=== PATIENT | male | born 1965 | race Caucasian/White ===

== ENCOUNTER 2020-12-23 12:56 | Outpatient (CLI) | payer OTHER, SELFPAY ==
[2020-12-23 13:38] LABS: Basophils Absolute Auto 0.1 K/mm3 (0.0-0.1); Basophils Percent Auto 1.8 % (0.2-1.2); Eosinophils Absolute Auto 0.4 K/mm3 (0-0.3); Eosinophils Percent Auto 7.4 % (0-4.4); Hematocrit 44.9 % (42.0-52.0); Hemoglobin 13.6 g/dL (14.0-18.0); Immature Granulocyte Absolute 0.02 K/mm3 (0.00-0.031); Immature Granulocyte Percent A 0.4 % (0-0.5); Lymphocytes Absolute Auto 1.91 K/mm3 (0.9-3.2); Lymphocytes Percent Auto 39.1 % (18.3-44.2); Mean Corpuscular HGB Conc 30.3 g/dl (32-36); Mean Corpuscular Hemoglobin 23.6 pg (26-34); Mean Corpuscular Volume 77.8 fl (80-100); Mean Platelet Volume 9.2 fl (7.4-10.4); Monocytes Absolute Auto 0.5 K/mm3 (0.1-0.6); Monocytes Percent Auto 10.8 % (2.6-8.5); Neutrophils Percent Auto 40.5 % (45.5-73.1); Platelet Count Result 268 k/mm3 (150-375); Red Blood Count 5.77 M/mm3 (4.6-6.20); Red Cell Distribution Width 15.9 % (11.5-14.5); White Blood Count 4.9 K/mm3 (4.5-10.0)
[2020-12-23 14:03] LABS: Alanine Aminotransferase 28 U/L (4-50); Albumin Level 4.8 g/dL (3.5-5.1); Alkaline Phosphatase 44 U/L (38-126); Anion Gap 12 mmol/L (8-16); Aspartate Amino Transferase 38 U/L (17-59); Bilirubin,Total 0.6 mg/dL (0.2-1.3); Blood Urea Nitrogen 16 mg/dL (9-20); Calcium 10.3 mg/dL (8.4-10.2); Carbon Dioxide 27 mmol/L (22-30); Chloride 101 mmol/L (98-107); Cholesterol 202 mg/dL (0-200); Estimated Glomerular Filt Rate > 60; Glucose 117 mg/dL (75-110); HDL Direct 40 mg/dL; Sodium 140 mmol/L (137-145); Triglycerides 161 mg/dL (<150)
[2020-12-23 14:07] LABS: LDL Cholesterol Direct 108 mg/dL
[2020-12-23 14:24] LABS: Prostate Specific Antigen 0.8 ng/mL (< OR = 4.0)
[2020-12-23 14:59] LABS: Vitamin D 25 Hydroxy 53.1 ng/mL
[2020-12-26 17:52] LABS: Testosterone Free 76.3 pg/mL (35.0-155.0); Testosterone Total 360 ng/dL (250-1100)
== END 2020-12-23 12:57 | disposition home or self-care (01) ==
LOC: ANHLAB 12:59
PROVIDERS: PCP Internal Medicine; Visit Provider Family Medicine
DX: Z00.00 Encounter for general adult medical examination without abnormal findings (principal); I10 Essential (primary) hypertension; E29.1 Testicular hypofunction; E78.5 Hyperlipidemia, unspecified; F51.01 Primary insomnia; E55.9 Vitamin D deficiency, unspecified; Z12.5 Encounter for screening for malignant neoplasm of prostate
CPT/HCPCS: 36415; 80053; 80061; 82306; 83036; 84153; 84402; 84403; 84443; 85025; G0103

== ENCOUNTER 2021-10-27 02:06 | Day surgery (SDC) | payer OTHER, SELFPAY ==
[2021-10-16 15:37] VITALS: BMI 40.8
[2021-10-27 11:52] VITALS: BP 139/99; PULSE 85; RESP 20; TEMP 35.9; O2SAT 98
[2021-10-27] MEDS: LACTATED RINGERS 1,000 ML 150 ML IV CONT (12:02)
--- NOTE | 2021-10-27 12:26 | WPDHPUPDATE1 ---
History and Physical Update Update Date/Time: 10/27/21 12:26 History and Physical has been reviewed, including an updated exam of the patient. There are NO changes in the patient's condition. Risks, benefits, and alternatives have been discussed and questions answered. Patient agrees to proceed with procedure.
--- NOTE | 2021-10-27 12:33 | WPDANESEPPF ---
Anes - Initial Pre Proc Eval Procedure: Operation Date: 10/27/21 13:00 Proposed Procedures p Esophagogastroduodenoscopy - Thai Mueller MD Date/Time: 10/27/21 12:33 Surgeon: Thai Mueller MD Pre Op Diagnosis: GERD, Vidales's Esophagus Patient Data Age: 56 Gender: M Height: 1.96 m Weight: 159.1 kg Last Vital Signs Temp 96.7 F L 10/27/21 11:52 Pulse 85 10/27/21 11:52 Resp 20 10/27/21 11:52 BP 139/99 H 10/27/21 11:52 Pulse Ox 98 10/27/21 11:52 Allergies Allergy/AdvReac Type Severity Reaction Status Date / Time corn AdvReac Mild Other Verified 10/27/21 11:51 Home Medications Medication Instructions Recorded Confirmed Type escitalopram oxalate 20 mg tablet 20 mg PO DAILY #90 tablet 03/31/21 10/16/21 Rx lisinopril 20 1 tablet PO DAILY #90 tablet 04/21/21 10/16/21 Rx mg-hydrochlorothiazide 25 mg tablet atorvastatin 20 mg tablet 20 mg PO QHS #90 tablet 05/13/21 10/16/21 Rx esomeprazole magnesium 20 mg 20 mg PO BID cap 07/09/21 10/16/21 History capsule,delayed release Patient hx anesthesia problems: none Family hx anesthesia problems: none Results Review: All pre-operative results and documents have been reviewed as part of the pre-operative evaluation. [facility] Past Medical History Medical History COVID 06/2021 Generalized anxiety disorder GERD without esophagitis Irritable bowel syndrome with diarrhea Low iron Mixed hyperlipidemia Prediabetes Primary insomnia Testicular hypofunction Umbilical hernia without mention of obstruction or gangrene Surgical History Surgical History H/O hemorrhoidectomy (~2000) Family History Family History Mother Family history of malignant neoplasm Father Family history of coronary artery disease Social History Social History Tobacco type: cigars Second hand tobacco smoke exposure: No Alcohol intake: current Drinks per week: 21 Alcohol use details: 3 beers nightly Substance use: never Substance use type: does not use Living arrangements: with family Additional living arrangements comments: Gender identity (if verbalized by the patient): Male Spiritual care concerns: No Anes - Eval Final PreProcedure Day of Procedure 10/27/21 12:33 Patient weight: morbidly obese Heart: regular rate and rhythm Lungs: clear to auscultation Airway: Mallampati scale class III Neurological: alert and oriented Last oral intake: >/= 8 hours ASA classification: III Emergent: no Anesthetic plan: proceed Anesthesia type and monitoring: general GIVS and standard monitoring Results Review: All pre-operative results and documents have been reviewed as part of the pre-operative evaluation. Informed Consent: The patient's anesthetic plan and its attendant risks and benefits were discussed with the patient/family/POA. Questions were solicited and answers provided to the satisfaction of the patient/family/POA.
[2021-10-27] MEDS: BENZOCAINE (*SP) 60 ML SPRAY CAN (HURRICAINE) 1 SPRAY MUCOUS MEM (13:04)
[2021-10-27 13:24] VITALS: BP 125/96; PULSE 79; RESP 18; O2SAT 96
[2021-10-27 13:34] VITALS: BP 148/88; PULSE 80; RESP 14; O2SAT 98
== END 2021-10-27 13:56 | disposition home or self-care (01) ==
PROVIDERS: PCP Family Medicine; Visit Provider Internal Medicine Gastroenterology
PROC: 0DJ08ZZ Inspection of Upper Intestinal Tract, Via Natural or Artificial Opening Endoscopic (ICD-10-PCS; CPT 43235; principal; 2021-10-27 13:00)
DX: K21.00 Gastro-esophageal reflux disease with esophagitis, without bleeding (principal); K22.9 Disease of esophagus, unspecified; K58.0 Irritable bowel syndrome with diarrhea; E78.2 Mixed hyperlipidemia; F41.1 Generalized anxiety disorder; R73.03 Prediabetes; E66.01 Morbid (severe) obesity due to excess calories; Z68.41 Body mass index [BMI] 40.0-44.9, adult
CPT/HCPCS: 43239; 88305; 88313; J2704; J7120

== ENCOUNTER 2021-12-31 11:13 | Outpatient (CLI) | payer OTHER, SELFPAY ==
[2021-12-31 11:57] LABS: Basophils Absolute Auto 0.1 K/mm3 (0.0-0.1); Basophils Percent Auto 1.3 % (0.2-1.2); Eosinophils Absolute Auto 0.3 K/mm3 (0-0.3); Eosinophils Percent Auto 4.6 % (0-4.4); Hematocrit 41.3 % (42.0-52.0); Hemoglobin 12.6 g/dL (14.0-18.0); Immature Granulocyte Absolute 0.03 K/mm3 (0.00-0.031); Immature Granulocyte Percent A 0.6 % (0-0.5); Lymphocytes Absolute Auto 1.66 K/mm3 (0.9-3.2); Lymphocytes Percent Auto 30.7 % (18.3-44.2); Mean Corpuscular HGB Conc 30.5 g/dl (32-36); Mean Corpuscular Hemoglobin 22.8 pg (26-34); Mean Corpuscular Volume 74.8 fl (80-100); Mean Platelet Volume 9.1 fl (7.4-10.4); Monocytes Absolute Auto 0.6 K/mm3 (0.1-0.6); Monocytes Percent Auto 10.7 % (2.6-8.5); Neutrophils Absolute Auto 2.8 K/mm3 (1.3-6.7); Neutrophils Percent Auto 52.1 % (45.5-73.1); Platelet Count Result 321 k/mm3 (150-375); Red Blood Count 5.52 M/mm3 (4.6-6.20); Red Cell Distribution Width 16.2 % (11.5-14.5); White Blood Count 5.4 K/mm3 (4.5-10.0)
[2021-12-31 12:37] LABS: Microcytosis 1+ (NORMAL); Platelet Estimate Adequate (Adequate)
[2021-12-31 12:38] LABS: Hypochromasia 1+ (NORMAL)
[2021-12-31 19:11] LABS: Alanine Aminotransferase 27 U/L (6-50); Albumin Level 4.7 g/dL (3.5-5.1); Alkaline Phosphatase 57 U/L (38-126); Amylase 83 U/L (30-110); Anion Gap 8 mmol/L (8-16); Aspartate Amino Transferase 41 U/L (17-59); Bilirubin,Total 0.6 mg/dL (0.2-1.3); Blood Urea Nitrogen 19 mg/dL (9-20); Calcium 9.7 mg/dL (8.4-10.2); Carbon Dioxide 29 mmol/L (22-30); Chloride 99 mmol/L (98-107); Estimated Glomerular Filt Rate > 60; Glucose 108 mg/dL (65-110); Lipase 74 U/L (23-300); Potassium 4.2 mmol/L (3.4-5.0); Sodium 136 mmol/L (137-145)
== END 2021-12-31 11:14 | disposition home or self-care (01) ==
LOC: ANHGOSHLAB 11:14
PROVIDERS: PCP Family Medicine; Visit Provider Nurse Practitioner Family
DX: R10.12 Left upper quadrant pain (principal)
CPT/HCPCS: 36415; 80053; 82150; 83690; 85025

== ENCOUNTER 2022-01-02 10:21 | Outpatient (CLI) | payer OTHER, SELFPAY ==
[2022-01-02 11:26] LABS: Iron 41 ug/dL (49-181)
[2022-01-02 11:36] LABS: Percent Iron Saturation 8 % (20-50)
[2022-01-02 12:03] LABS: Ferritin 7.18 ng/mL (11.1-264)
[2022-01-02 12:29] LABS: Folic Acid 8.7 ng/mL (2.76->20)
[2022-01-08 19:30] LABS: Gliadin AB, IgG <1.0 U/mL (<15.0); TTG IGA AB <1.0 U/mL (<15.0)
== END 2022-01-02 10:22 | disposition home or self-care (01) ==
PROVIDERS: PCP Family Medicine; Visit Provider Nurse Practitioner
DX: R19.7 Diarrhea, unspecified (principal); R19.4 Change in bowel habit; R14.3 Flatulence; D50.9 Iron deficiency anemia, unspecified
CPT/HCPCS: 36415; 82607; 82728; 82746; 83516; 83540; 83550; 84443; 86255

== ENCOUNTER 2022-01-07 10:08 | Outpatient (CLI) | payer OTHER, SELFPAY ==
[2022-01-07 14:03] LABS: Toxigenic C. Diff NEGATIVE (NEGATIVE)
== END 2022-01-07 10:09 | disposition home or self-care (01) ==
LOC: ANHLAB 10:09
PROVIDERS: PCP Family Medicine; Visit Provider Nurse Practitioner
DX: D50.9 Iron deficiency anemia, unspecified (principal); R14.3 Flatulence; R19.4 Change in bowel habit; R19.7 Diarrhea, unspecified
CPT/HCPCS: 87045; 87427; 87493

== ENCOUNTER 2022-01-12 00:31 | Day surgery (SDC) | payer OTHER, SELFPAY ==
[2022-01-07 13:51] VITALS: BMI 40.5
[2022-01-12 11:57] VITALS: BP 149/97; PULSE 91; RESP 20; TEMP 36.4; O2SAT 97
[2022-01-12] MEDS: LACTATED RINGERS 1,000 ML 150 ML IV CONT (12:00)
--- NOTE | 2022-01-12 12:02 | WPDANESEPPF ---
Anes - Initial Pre Proc Eval Procedure: Operation Date: 01/12/22 13:30 Proposed Procedures p Colonoscopy - Thai Mueller MD Date/Time: 01/12/22 12:02 Surgeon: Thai Mueller MD Pre Op Diagnosis: anemia, abdominal pain, change in bowel habits Patient Data Age: 56 Gender: M Height: 1.96 m Weight: 157.2 kg Last Vital Signs Temp 97.6 F 01/12/22 11:57 Pulse 91 01/12/22 11:57 Resp 20 01/12/22 11:57 BP 149/97 H 01/12/22 11:57 Pulse Ox 97 01/12/22 11:57 O2 Del Method Room Air 01/12/22 11:57 Allergies Allergy/AdvReac Type Severity Reaction Status Date / Time No Known Allergies Allergy Verified 01/12/22 11:56 Home Medications Medication Instructions Recorded Confirmed Type lisinopril 20 1 tablet PO DAILY #90 tabs 11/12/21 01/12/22 Rx mg-hydrochlorothiazide 25 mg tablet doxazosin 4 mg tablet 4 mg PO DAILY #90 tabs 12/01/21 01/12/22 Rx atorvastatin 20 mg tablet 20 mg PO QHS #90 tabs 12/03/21 01/12/22 Rx escitalopram oxalate 20 mg tablet 20 mg PO DAILY #90 tabs 12/03/21 01/12/22 Rx dexlansoprazole 60 mg 60 mg PO DAILY #30 caps 01/02/22 01/12/22 Rx capsule,biphase delayed release (Dexilant) ferrous sulfate 325 mg (65 mg 325 mg PO DAILY #30 tabs 01/02/22 01/12/22 Rx iron) tablet esomeprazole magnesium 20 mg 20 mg PO DAILY 01/12/22 01/12/22 History capsule,delayed release (Nexium) Patient hx anesthesia problems: none Family hx anesthesia problems: none Results Review: All pre-operative results and documents have been reviewed as part of the pre-operative evaluation. [facility] Past Medical History Medical History (Updated 01/02/22 @ 10:19 by Radha Redman APRN) Change in bowel habits COVID 06/2021 Diarrhea Flatulence Generalized anxiety disorder GERD without esophagitis Irritable bowel syndrome with diarrhea Low iron Microcytic anemia Mixed hyperlipidemia Prediabetes Primary insomnia Testicular hypofunction Tobacco abuse Umbilical hernia without mention of obstruction or gangrene Surgical History Surgical History H/O hemorrhoidectomy (~2000) Family History Family History Mother Family history of malignant neoplasm Father Family history of coronary artery disease Social History Social History Smoking status: Light tobacco smoker Tobacco type: cigars Second hand tobacco smoke exposure: No Alcohol intake: current Drinks per week: 2 Alcohol use details: 3 beers nightly Substance use: never Substance use type: does not use Additional living arrangements comments: Gender identity (if verbalized by the patient): Male Sexual Orientation (if Verbalized by the Patient): Straight or Heterosexual Spiritual care concerns: No Anes - Eval Final PreProcedure Day of Procedure 01/12/22 12:02 Patient weight: morbidly obese Heart: regular rate and rhythm Lungs: clear to auscultation Airway: Mallampati scale class II Neurological: alert and oriented Last oral intake: >/= 8 hours ASA classification: III Emergent: no Anesthetic plan: proceed Anesthesia type and monitoring: general GIVS and standard monitoring Results Review: All pre-operative results and documents have been reviewed as part of the pre-operative evaluation. Informed Consent: The patient's anesthetic plan and its attendant risks and benefits were discussed with the patient/family/POA. Questions were solicited and answers provided to the satisfaction of the patient/family/POA.
--- NOTE | 2022-01-12 12:10 | WPDHPUPDATE1 ---
History and Physical Update Update Date/Time: 01/12/22 12:10 History and Physical has been reviewed, including an updated exam of the patient. There are NO changes in the patient's condition. Risks, benefits, and alternatives have been discussed and questions answered. Patient agrees to proceed with procedure.
[2022-01-12 12:58] VITALS: BP 134/97; PULSE 55; RESP 23; O2SAT 100
[2022-01-12 13:08] VITALS: BP 145/98; PULSE 67; RESP 20; O2SAT 100
[2022-01-12 13:18] VITALS: BP 151/108; PULSE 67; RESP 20; O2SAT 100
== END 2022-01-12 13:31 | disposition home or self-care (01) ==
PROVIDERS: PCP Family Medicine; Visit Provider Internal Medicine Gastroenterology
PROC: 0DJD8ZZ Inspection of Lower Intestinal Tract, Via Natural or Artificial Opening Endoscopic (ICD-10-PCS; CPT 45378; principal; 2022-01-12 13:30)
DX: R10.12 Left upper quadrant pain (principal); K64.8 Other hemorrhoids; D12.5 Benign neoplasm of sigmoid colon; Z86.16 Personal history of COVID-19; F41.1 Generalized anxiety disorder; E78.2 Mixed hyperlipidemia; R73.03 Prediabetes; K21.9 Gastro-esophageal reflux disease without esophagitis; F51.01 Primary insomnia; G47.9 Sleep disorder, unspecified; K58.0 Irritable bowel syndrome with diarrhea; K42.9 Umbilical hernia without obstruction or gangrene; D50.9 Iron deficiency anemia, unspecified; I10 Essential (primary) hypertension; R19.4 Change in bowel habit; R14.3 Flatulence; F17.210 Nicotine dependence, cigarettes, uncomplicated
CPT/HCPCS: 45385; 88305; J2704; J7120

== ENCOUNTER 2022-01-21 09:29 | Outpatient (CLI) | payer OTHER, SELFPAY ==
[2022-01-21 19:23] LABS: Basophils Absolute Auto 0.1 K/mm3 (0.0-0.1); Basophils Percent Auto 1.4 % (0.2-1.2); Eosinophils Absolute Auto 0.3 K/mm3 (0-0.3); Eosinophils Percent Auto 4.7 % (0-4.4); Hematocrit 43.2 % (42.0-52.0); Hemoglobin 12.8 g/dL (14.0-18.0); Immature Granulocyte Absolute 0.02 K/mm3 (0.00-0.031); Immature Granulocyte Percent A 0.4 % (0-0.5); Lymphocytes Absolute Auto 1.92 K/mm3 (0.9-3.2); Lymphocytes Percent Auto 34.7 % (18.3-44.2); Mean Corpuscular HGB Conc 29.6 g/dl (32-36); Mean Corpuscular Volume 77.7 fl (80-100); Mean Platelet Volume 9.8 fl (7.4-10.4); Monocytes Absolute Auto 0.6 K/mm3 (0.1-0.6); Monocytes Percent Auto 10.7 % (2.6-8.5); Neutrophils Absolute Auto 2.7 K/mm3 (1.3-6.7); Neutrophils Percent Auto 48.1 % (45.5-73.1); Platelet Count Result 284 k/mm3 (150-375); Red Blood Count 5.56 M/mm3 (4.6-6.20); Red Cell Distribution Width 18.2 % (11.5-14.5); White Blood Count 5.5 K/mm3 (4.5-10.0)
[2022-01-21 20:07] LABS: Cholesterol 154 mg/dL (0-200); HDL Direct 27 mg/dL; Triglycerides 139 mg/dL (<150)
[2022-01-21 20:15] LABS: Vitamin D 25 Hydroxy 55.1 ng/mL
[2022-01-21 20:27] LABS: LDL Cholesterol Direct 83 mg/dL
[2022-01-21 20:38] LABS: Anisocytosis 2+ (NORMAL); Hypochromasia 1+ (NORMAL); Platelet Estimate Adequate (Adequate)
[2022-01-21 20:44] LABS: Hemoglobin A1C 5.8 % (<5.7)
== END 2022-01-21 09:30 | disposition home or self-care (01) ==
LOC: ANHGOSHLAB 09:30
PROVIDERS: PCP Family Medicine; Visit Provider Family Medicine
DX: Z12.5 Encounter for screening for malignant neoplasm of prostate (principal); E78.5 Hyperlipidemia, unspecified; Z00.00 Encounter for general adult medical examination without abnormal findings; E55.9 Vitamin D deficiency, unspecified; R73.03 Prediabetes
CPT/HCPCS: 36415; 80061; 82306; 83036; 84153; 85025; G0103

== ENCOUNTER 2022-08-03 09:12 | Outpatient (CLI) | payer OTHER, SELFPAY ==
[2022-08-09 17:10] LABS: Testosterone Free 42.6 pg/mL (35.0-155.0); Testosterone Total 352 ng/dL (250-1100)
== END 2022-08-03 09:13 | disposition home or self-care (01) ==
PROVIDERS: PCP Family Medicine; Visit Provider Family Medicine
DX: E29.1 Testicular hypofunction (principal)
CPT/HCPCS: 36415; 84402; 84403

== ENCOUNTER 2022-11-02 10:40 | Outpatient (CLI) | payer OTHER, SELFPAY ==
[2022-11-02 11:07] LABS: Basophils Absolute Auto 0.1 K/mm3 (0.0-0.1); Basophils Percent Auto 1.1 % (0.2-1.2); Eosinophils Absolute Auto 0.3 K/mm3 (0-0.3); Eosinophils Percent Auto 4.7 % (0-4.4); Hematocrit 46.6 % (42.0-52.0); Hemoglobin 15.1 g/dL (14.0-18.0); Immature Granulocyte Absolute 0.03 K/mm3 (0.00-0.031); Immature Granulocyte Percent A 0.5 % (0-0.5); Lymphocytes Absolute Auto 1.89 K/mm3 (0.9-3.2); Lymphocytes Percent Auto 34.5 % (18.3-44.2); Mean Corpuscular HGB Conc 32.4 g/dl (32-36); Mean Corpuscular Hemoglobin 27.5 pg (26-34); Mean Corpuscular Volume 84.7 fl (80-100); Mean Platelet Volume 9.2 fl (7.4-10.4); Monocytes Absolute Auto 0.5 K/mm3 (0.1-0.6); Monocytes Percent Auto 9.3 % (2.6-8.5); Neutrophils Absolute Auto 2.7 K/mm3 (1.3-6.7); Neutrophils Percent Auto 49.9 % (45.5-73.1); Platelet Count Result 244 k/mm3 (150-375); Red Cell Distribution Width 13.3 % (11.5-14.5); White Blood Count 5.5 K/mm3 (4.5-10.0)
[2022-11-02 11:25] LABS: Alanine Aminotransferase 34 U/L (6-50); Albumin Level 4.7 g/dL (3.5-5.1); Alkaline Phosphatase 45 U/L (38-126); Anion Gap 9 mmol/L (8-16); Aspartate Amino Transferase 30 U/L (17-59); Bilirubin,Total 0.6 mg/dL (0.2-1.3); Blood Urea Nitrogen 17 mg/dL (9-20); Calcium 9.1 mg/dL (8.4-10.2); Carbon Dioxide 30 mmol/L (22-30); Chloride 102 mmol/L (98-107); Cholesterol 172 mg/dL (0-200); Estimated Glomerular Filt Rate > 60; Glucose 115 mg/dL (65-110); HDL Direct 34 mg/dL; Potassium 4.2 mmol/L (3.4-5.0); Sodium 141 mmol/L (137-145); Triglycerides 152 mg/dL (<150)
[2022-11-02 11:36] LABS: LDL Cholesterol Direct 97 mg/dL
[2022-11-02 11:42] LABS: Hemoglobin A1C 5.8 % (<5.7)
[2022-11-02 11:43] LABS: Iron 61 ug/dL (49-181)
[2022-11-02 11:52] LABS: Percent Iron Saturation 12 % (20-50)
[2022-11-02 12:19] LABS: Ferritin 7.95 ng/mL (11.1-264)
== END 2022-11-02 10:41 | disposition home or self-care (01) ==
LOC: ANHLAB 10:41
PROVIDERS: PCP Family Medicine; Visit Provider Nurse Practitioner
DX: E53.8 Deficiency of other specified B group vitamins (principal); I10 Essential (primary) hypertension; E78.5 Hyperlipidemia, unspecified; E61.1 Iron deficiency; R73.03 Prediabetes
CPT/HCPCS: 36415; 80053; 80061; 82607; 82728; 83036; 83540; 83550; 85025

== ENCOUNTER 2023-02-26 08:08 | Emergency (ER) | payer OTHER, SELFPAY ==
--- NOTE | ~2023-02-26 | CT_ITS ---
EXAMINATION: CT abdomen pelvis w con DATE: 02/26/2023 09:05 INDICATION: Right upper quadrant abdominal pain. TECHNIQUE: Computed tomography (CT) of the abdomen and pelvis was performed with 100 mL Omnipaque 350 intravenous contrast. Automated exposure control and iterative reconstruction technique were employe d. The dose-length product was 1776.77 mGy-cm. COMPARISON: None. FINDINGS: The visualized portions of the lung bases demonstrate groundglass opacities and septal thic kening in the lower lobes and lingula, which may be atelectasis and/or chronic lung disease. Calcifie d right hilar lymph nodes are consistent with old granulomatous disease. No pleural effusion. The hea rt size is normal. No pericardial effusion. There is a small sliding hiatal hernia. The liver, gallbl adder, spleen, and pancreas are normal. There are masses in the adrenal glands measuring up to 2.0 cm on the left measuring soft tissue attenuation. The kidneys are normal. The prostate is mildly enlarg ed. There is diverticulosis of the colon without evidence of diverticulitis. The appendix is normal. There is an umbilical hernia containing fat. There are no pathologically enlarged lymph nodes. There is no free intraperitoneal fluid. There is lumbar levoscoliosis and severe lower lumbar spondylosis. IMPRESSION: 1. Small sliding hiatal hernia. 2. Umbilical hernia containing fat. 3. Small bilateral adrenal masses. In the absence of known malignancy, these findings are likely bob omas. Reviewed, dictated and finalized at location A. IMPRESSION: 1. Small sliding hiatal hernia. 2. Umbilical hernia containing fat. 3. Small bilateral adrenal masses. In the absence of known malignancy, these fi ndings are likely adenomas.
--- NOTE | ~2023-02-26 | XR_ITS ---
EXAMINATION: XR chest 2V DATE: 02/26/2023 09:20 INDICATION: Right lower chest pain. Cough. TECHNIQUE: Frontal and lateral views of the chest were obtained. COMPARISON: CT abdomen and pelvis 02/26/2023 FINDINGS: There are airspace opacities at the lung bases. No pleural effusion or pneumothorax. The he art size is normal. There is mild chronic anterior wedging of multiple vertebral bodies. IMPRESSION: 1. Airspace opacities at the lung bases, consistent with atelectasis and/or chronic lung disease. Reviewed, dictated and finalized at location A. IMPRESSION: 1. Airspace opacities at the lung bases, consistent with atelectasis and/or chr onic lung disease.
[2023-02-26 08:15] VITALS: BP 143/90; PULSE 78; RESP 18; TEMP 36.6; O2SAT 100
[2023-02-26 08:42] LABS: Appearance Urine Clear (Clear); Basophils Absolute Auto 0.1 K/mm3 (0.0-0.1); Basophils Percent Auto 1.2 % (0.2-1.2); Bilirubin Urine Negative (Negative); Blood Urine Negative (Negative); Color Urine Yellow (Yellow); Eosinophils Absolute Auto 0.3 K/mm3 (0-0.3); Eosinophils Percent Auto 4.6 % (0-4.4); Glucose Urine UA Negative (Negative); Hematocrit 46.7 % (42.0-52.0); Immature Granulocyte Absolute 0.03 K/mm3 (0.00-0.031); Immature Granulocyte Percent A 0.5 % (0-0.5); Ketones Urine Negative (Negative); Leukocyte Esterase Ur Negative LEU/UL (Negative); Lymphocytes Absolute Auto 2.09 K/mm3 (0.9-3.2); Lymphocytes Percent Auto 35.7 % (18.3-44.2); Mean Corpuscular HGB Conc 32.1 g/dl (32-36); Mean Corpuscular Volume 87.3 fl (80-100); Mean Platelet Volume 9.4 fl (7.4-10.4); Monocytes Absolute Auto 0.5 K/mm3 (0.1-0.6); Monocytes Percent Auto 9.1 % (2.6-8.5); Neutrophils Absolute Auto 2.9 K/mm3 (1.3-6.7); Neutrophils Percent Auto 48.9 % (45.5-73.1); Nitrate Urine Negative (Negative); Platelet Count Result 262 k/mm3 (150-375); Protein Urine Negative (Negative); Red Blood Count 5.35 M/mm3 (4.6-6.20); Red Cell Distribution Width 12.9 % (11.5-14.5); Specific Grav Ur 1.025 (1.001-1.035); Urobilinogen Urine 0.2 mg/dL (<2.0); White Blood Count 5.9 K/mm3 (4.5-10.0)
[2023-02-26 08:51] LABS: Alanine Aminotransferase 33 U/L (6-50); Albumin Level 4.7 g/dL (3.5-5.1); Alkaline Phosphatase 40 U/L (38-126); Anion Gap 7 mmol/L (8-16); Aspartate Amino Transferase 30 U/L (17-59); Bilirubin,Total 0.6 mg/dL (0.2-1.3); Blood Urea Nitrogen 19 mg/dL (9-20); Calcium 9.3 mg/dL (8.4-10.2); Carbon Dioxide 31 mmol/L (22-30); Chloride 98 mmol/L (98-107); Estimated CRCL calculation 102 ml/min; Estimated Glomerular Filt Rate > 60; Glucose 123 mg/dL (65-110); Lipase 72 U/L (23-300); Potassium 4.2 mmol/L (3.4-5.0); Sodium 136 mmol/L (137-145)
[2023-02-26] MEDS: ONDANSETRON INJ 4 MG/2 ML VIAL IV PUSH (08:51)
[2023-02-26] MEDS: MORPHINE SULFATE (*CRX) 4 MG/ML INJ IV PUSH (08:51)
[2023-02-26 08:59] LABS: Add Urine Microscopic? NO
[2023-02-26] MEDS: LIDOCAINE 5% PATCH 1 PATCH TRANSDERM (09:15)
[2023-02-26 09:32] VITALS: BP 118/64; O2SAT 95
[2023-02-26 09:33] VITALS: O2SAT 94
--- NOTE | 2023-02-26 09:36 | ED.ABDPAIN ---
HPI - Abdominal Pain General Chief Complaint: Abdominal Pain Stated Complaint: RUQ pain Time Seen by Provider: 02/26/23 08:21 History of Present Illness HPI narrative: This is a 57-year-old male, with history of hypertension and diabetes, presents emergency department complaining of 2 days of right upper quadrant abdominal pain after a cough. The patient states 2 days ago, he coughed and felt a sudden, sharp right upper quadrant abdominal pain. The pain is rated 8/10 and is worse with any kind of movement of the torso. He denies associated nausea, vomiting, or bleeding from any source. Related Data Home Medications Medication Instructions Recorded Confirmed esomeprazole magnesium 20 mg 40 mg PO BID 01/19/22 02/16/23 capsule,delayed release (Nexium) Allergies Allergy/AdvReac Type Severity Reaction Status Date / Time No Known Allergies Allergy Verified 02/16/23 15:31 Review of Systems Review of Systems: CONSTITUTIONAL: Denies fever, chills, or sweats. CARDIOVASCULAR: Denies chest pain, palpitations, or edema. RESPIRATORY: Denies cough or dyspnea. GASTROINTESTINAL: Right upper quadrant abdominal pain denies nausea, vomiting, or diarrhea. GENITOURINARY: Denies dysuria or hematuria. SKIN: Denies rash or itching. MUSCULOSKELETAL: Denies back pain, joint pain, or myalgia. NEUROLOGIC: Denies headache, numbness, dizziness, or weakness. PSYCHIATRIC: Denies anxiety or depression. [facility] Past Medical History Medical History Arthritis Chronic neck pain COVID 06/2021 Generalized anxiety disorder GERD without esophagitis Irritable bowel syndrome with diarrhea Low iron Microcytic anemia Mixed hyperlipidemia Morbid obesity Prediabetes Primary insomnia Testicular hypofunction Tobacco abuse Umbilical hernia without mention of obstruction or gangrene Vitamin B12 deficiency Surgical History Surgical History H/O hemorrhoidectomy (~2000) Family History Family History Mother Family history of malignant neoplasm Father Family history of coronary artery disease Social History Social History Smoking status: Light tobacco smoker Tobacco type: cigars Second hand tobacco smoke exposure: No Alcohol intake: current Drinks per week: 2 Alcohol use details: 3 beers nightly Substance use: never Substance use type: does not use Lack of Transportation: No Lack of Food: Never True Current Housing: I Have Housing Concerned About Future Housing: No Difficulty Paying Gas/Electric Bills: No Difficulty Paying for Meds: No Currently Unemployed: No Education: Master's Degree or Higher Difficulty w/ Childcare or Family Care: No Living arrangements: with family Additional living arrangements comments: Occupation/Education: occupation Gender identity (if verbalized by the patient): Male Sexual Orientation (if Verbalized by the Patient): Straight or Heterosexual Spiritual care concerns: No Agree to blood products: Yes Exam Narrative: GENERAL: Well-developed, well-nourished, and in no acute distress. HEAD: Normocephalic, atraumatic. EYES: PERRLA and EOMI. ENT: Nares clear, no rhinorrhea or epistaxis. Mucous membranes moist. Oropharynx without tonsillar hypertrophy exudate or other lesions. CHEST: Clear to auscultation. No respiratory distress. No wheezes rales or rhonchi. Tender to palpation over the eighth and ninth ribs on the right side without step-off or crepitus HEART: Regular rate and rhythm. No murmur heard. Normal peripheral pulses. ABDOMEN: Soft, right upper quadrant tenderness to palpation, without rebound or guarding, nondistended, normal active bowel sounds. No CVA tenderness to palpation EXTREMITIES: Normal range of motion. No edema. S
[2023-02-26] MEDS: CYCLOBENZAPRINE HCL 10 MG TABLET PO (09:40)
[2023-02-26 09:46] VITALS: O2SAT 96
== END 2023-02-26 10:22 | disposition home or self-care (01) ==
PROVIDERS: Emergency Provider Preventive Medicine Aerospace Medicine; PCP Family Medicine
DX: R07.89 Other chest pain (principal); M94.0 Chondrocostal junction syndrome [Tietze]; K21.9 Gastro-esophageal reflux disease without esophagitis; F17.290 Nicotine dependence, other tobacco product, uncomplicated; E78.2 Mixed hyperlipidemia; R73.03 Prediabetes; K58.0 Irritable bowel syndrome with diarrhea; D64.9 Anemia, unspecified; E53.8 Deficiency of other specified B group vitamins; E66.01 Morbid (severe) obesity due to excess calories; Z68.41 Body mass index [BMI] 40.0-44.9, adult; Z79.890 Hormone replacement therapy
CPT/HCPCS: 36415; 71046; 74177; 80053; 81003; 83690; 85025; 96374; 96375; 99284; A9270; J2270; J2405; Q9967

== ENCOUNTER 2023-11-17 13:13 | Outpatient (CLI) | payer OTHER, SELFPAY ==
[2023-11-17 19:45] LABS: Basophils Absolute Auto 0.1 K/mm3 (0.0-0.1); Eosinophils Absolute Auto 0.2 K/mm3 (0-0.3); Eosinophils Percent Auto 4.2 % (0-4.4); Hematocrit 46.7 % (42.0-52.0); Immature Granulocyte Absolute 0.02 K/mm3 (0.00-0.031); Immature Granulocyte Percent A 0.4 % (0-0.5); Lymphocytes Absolute Auto 2.02 K/mm3 (0.9-3.2); Lymphocytes Percent Auto 40.2 % (18.3-44.2); Mean Corpuscular HGB Conc 32.1 g/dl (32-36); Mean Corpuscular Hemoglobin 27.8 pg (26-34); Mean Corpuscular Volume 86.6 fl (80-100); Mean Platelet Volume 9.9 fl (7.4-10.4); Monocytes Absolute Auto 0.5 K/mm3 (0.1-0.6); Monocytes Percent Auto 10.1 % (2.6-8.5); Neutrophils Absolute Auto 2.2 K/mm3 (1.3-6.7); Neutrophils Percent Auto 44.1 % (45.5-73.1); Platelet Count Result 285 k/mm3 (150-375); Red Blood Count 5.39 M/mm3 (4.6-6.20); Red Cell Distribution Width 13.6 % (11.5-14.5)
[2023-11-17 20:01] LABS: Alanine Aminotransferase 31 U/L (6-50); Albumin Level 4.7 g/dL (3.5-5.1); Alkaline Phosphatase 44 U/L (38-126); Anion Gap 8 mmol/L (4-12); Aspartate Amino Transferase 64 U/L (17-59); Bilirubin,Total 0.6 mg/dL (0.2-1.3); Blood Urea Nitrogen 22 mg/dL (9-20); Calcium 9.3 mg/dL (8.4-10.2); Carbon Dioxide 30 mmol/L (22-30); Chloride 99 mmol/L (98-107); Cholesterol 162 mg/dL (0-200); Estimated Glomerular Filt Rate > 60; Glucose 112 mg/dL (65-110); HDL Direct 27 mg/dL; Potassium 4.5 mmol/L (3.4-5.0); Sodium 137 mmol/L (137-145); Triglycerides 129 mg/dL (<150)
[2023-11-17 20:06] LABS: Hemoglobin A1C 5.7 % (<5.7)
[2023-11-17 20:12] LABS: LDL Cholesterol Direct 100 mg/dL
[2023-11-17 20:27] LABS: Vitamin D 25 Hydroxy 26.3 ng/mL
[2023-11-17 20:30] LABS: Prostate Specific Antigen 0.9 ng/mL (< OR = 4.0)
[2023-11-17 21:09] LABS: Iron 71 ug/dL (49-181); Percent Iron Saturation 14 % (20-50)
== END 2023-11-17 13:14 | disposition home or self-care (01) ==
LOC: ANHGOSHLAB 13:15
PROVIDERS: PCP Family Medicine; Visit Provider Family Medicine
DX: Z00.00 Encounter for general adult medical examination without abnormal findings (principal); E78.5 Hyperlipidemia, unspecified; I10 Essential (primary) hypertension; E61.1 Iron deficiency; E55.9 Vitamin D deficiency, unspecified; R73.03 Prediabetes; Z12.5 Encounter for screening for malignant neoplasm of prostate
CPT/HCPCS: 36415; 80053; 80061; 82306; 82607; 82728; 82746; 83036; 83540; 83550; 84153; 84443; 85025; G0103

== ENCOUNTER 2024-01-13 10:28 | Outpatient (CLI) | payer OTHER, SELFPAY ==
[2024-01-18 13:53] LABS: Testosterone Free 56.2 pg/mL (35.0-155.0); Testosterone Total 222 ng/dL (250-1100)
== END 2024-01-13 10:29 | disposition home or self-care (01) ==
LOC: ANHGOSHLAB 10:30
PROVIDERS: PCP Family Medicine; Visit Provider Family Medicine
DX: E29.1 Testicular hypofunction (principal)
CPT/HCPCS: 36415; 84402; 84403

== ENCOUNTER 2025-03-16 10:03 | Outpatient (CLI) | payer OTHER, SELFPAY ==
--- OUTSIDE RECORDS SUMMARY | 2025-03-16 10:18 | XMS_ITS | Encounter Summary ---
Author Organization [facility] Address [address] [address] Care Team Providers Care Shoe Shanker Name Role Phone Halina Zavala MD, Oscar A. Primary Care Provider Halina Zavala MD, Oscar A. Primary Care Provider Halina Zavala MD, Oscar A. 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 us Historical Provider [facility] Final Result documented in this encounter Visit Diagnoses Not on filedocumented in this encounter Care Teams Shoe Shanker Relationship Specialty Start Date End Date Constantino Meade Jr., MD [address] [place] [address] PCP - General 07/16/16 06/10/17 Constantino Meade Jr., MD [address] [place] [address] PCP - General Geriatric Medicine 06/11/17 Constantino Meade Jr., MD [address] [place] [address] 06/11/17 documented as of this encounter
--- OUTSIDE RECORDS SUMMARY | 2025-03-16 10:18 | XMS_ITS | Clinical Summary ---
Author Organization [facility] [place] [address] Address [address] [place] [id number] Care Team Providers Care Health Promotion Educator Name Role Phone Halina Zavala MD, Oscar A. Primary Care Provider Halina Zavala MD, Oscar A. Unavailable [phone] Allergies No known active allergies Medications escitalopram (LEXAPRO) 20 mg tablet take 1 tablet by oral route every day 0 0 07/16/2016 Active simvastatin (ZOCOR) 40 mg tablet take 1 tablet by oral route every day in the evening 0 0 07/16/[address] (NexIUM) 40 mg capsule take 1 capsule by oral route 2 times every day 0 0 07/16/2016 Active esomeprazole (NexIUM) 10 mg packet Take 10 mg by mouth daily before breakfast. Active citalopram (CeleXA) 10 mg tablet Take 10 mg by mouth daily. Active Active Problems No known active problems Family History Medical History Relation Name Comments Heart attack Father Myocardial infa rction; Other Father 9 stents; /pace maker; /Alive and well; Other Mother Alive and well; Relation Name Status Comments Father Alive Mother Alive Social History Tobacco Use Types Packs/Day Years Used Date Smoking Tobacco: Light Smoker Cigars Smokeless Tobacco: Never Alcohol Use Standard Drinks/Week Comments Yes 0 (1 standard drink = 0.6 oz pur e alcohol) Personal Safety Answer Date Recorded Getting School Help Needed Not on file 08/27 Sex and Gender Information Value Date Recorded Sex Assigned at Not on file 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 Gender Identity Not on file Sexual Orientation Not on file Obstetrics History Last Filed Vital Signs Vital Sign Reading Time Taken Comments Blood Pressure 130/78 08/04/2017 2:05 PM REPORTS ANALYSIS MANAGER Pulse 82 07/16/2016 2:08 PM REPORTS ANALYSIS MANAGER Temperature - - Respiratory Rate - - Oxygen Saturation - - Inhaled Oxygen Concentration - - Weight 147.4 kg (325 lb) 08/04/2017 2:05 PM REPORTS ANALYSIS MANAGER Height 195.6 cm (6' 5) 08/04/2017 2:05 PM REPORTS ANALYSIS MANAGER Body Mass Index 38.54 08/04/2017 2:05 PM REPORTS ANALYSIS MANAGER Plan of Treatment Not on file Insurance [facility]/PPO Address: [facility] [address] [place] [address] [facility]PPO Address: [place] [address] Care Teams Health Promotion Educator Relationship Specialty Start Date End Date Constantino Meade Jr., MD [address] [place] [address] PCP - General Geriatric Medicine 06/11/17 Constantino Meade Jr., MD [address] [place] [address] 06/11/17
--- OUTSIDE RECORDS SUMMARY | 2025-03-16 10:18 | XMS_ITS | Encounter Summary ---
Author Organization [facility] Address [address] [address] Care Team Providers Care Vice President Diversity Name Role Phone Halina Zavala MD, Oscar A. Primary Care Provider Halina Zavala MD, Oscar A. Primary Care Provider Halina Zavala MD, Oscar A. 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 us Historical Provider [facility] Final Result documented in this encounter Visit Diagnoses Not on filedocumented in this encounter Care Teams Vice President Diversity Relationship Specialty Start Date End Date Constantino Meade Jr., MD [address] [place] [address] PCP - General 07/16/16 06/10/17 Constantino Meade Jr., MD [address] [place] [place] [address] PCP - General Geriatric Medicine 06/11/17 Constantino Meade Jr., MD [address] [place] [place] [address] 06/11/17 documented as of this encounter
[2025-03-16 12:59] LABS: Hemoglobin A1C 5.5 % (<5.7)
[2025-03-16 13:57] LABS: Alanine Aminotransferase 33 U/L (6-50); Albumin Level 4.8 g/dL (3.5-5.1); Alkaline Phosphatase 42 U/L (38-126); Anion Gap 11 mmol/L (4-12); Aspartate Amino Transferase 55 U/L (17-59); Bilirubin,Total 0.7 mg/dL (0.2-1.3); Blood Urea Nitrogen 17 mg/dL (9-20); Calcium 9.8 mg/dL (8.4-10.2); Carbon Dioxide 28 mmol/L (22-30); Chloride 97 mmol/L (98-107); Estimated Glomerular Filt Rate > 60; Glucose 102 mg/dL (65-110); Potassium 4.3 mmol/L (3.4-5.0); Sodium 136 mmol/L (137-145); Total Protein 8.7 g/dL (6.3-8.2)
== END 2025-03-16 10:04 | disposition home or self-care (01) ==
LOC: ANHGOSHLAB 10:04
PROVIDERS: PCP Family Medicine; Visit Provider Family Medicine
DX: R73.03 Prediabetes (principal); I10 Essential (primary) hypertension
CPT/HCPCS: 36415; 80053; 83036

== ENCOUNTER 2025-03-29 10:45 | Outpatient (CLI) | payer OTHER, SELFPAY ==
--- OUTSIDE RECORDS SUMMARY | 2025-03-29 12:35 | XMS_ITS | Data Portability ---
Author Organization [place] - [facility], Main Office Address [address] [place] [address] Care Team Providers Care Driver'S License Reviewing Officer Name Role Phone OPAL CAMPBELL JR Primary Care Provider Assessment No assessment recorded. Plan of Treatment Reminders Order Date Submit Date Provider Last Modified By Organization Details Last Modified Time Details Appointments None record ed. Lab None record ed. Referral None record ed. Procedures None record ed. Surgeries None record ed. Imaging None record ed. Medication Orders None record ed. Patient TargetsNo targets recorded. Patient Instructions Encounter Date Encounter Id Patient Instructions Last Modified By Organization Details Last Modified Time 06/09/2017 1802 Patient counsele d to F/U immediately if temp. greater than 100.4, if is unable to urinate, increased rectal pain or any other concerns. Not available 06/09/2017 19:06:12 He will follow u p only as needed with me. He should see a surgeon as well. Not available 06/09/2017 19:06:39 Reason for Referral None Reported. Problems Name Problem SNOMED Code Status Onset Date Resolution Date Notes Provider Name and Address Organization Details Recorded Time Pile easily reducible 232256859 Active 2013 Tx #1: 4 1.2 x 10 LL Tx #2: 08/16/13 1.2 x 11 RP Tx #3: 4 1.1 x 8 RA Tx #4: 09/13/13 1.2 x 8 LL Tx #5: 4 1.2 x 11 RP Tx #6: 11/16/13 1.2 x 10 RP Tx #7: 08/21/15 1.2 x 8 LL and 1.2 x 4 RP Tx #8: 1.2 x 5 LL and 1.2 x 6 RP Tx #9: 7 1.2 x 4 LL, x 5 RP and x 2 RA Tx #10: 1.2 x 6 LL and 1.2 x 6 RP Ritika Vallejo MD [address] [place] [address],[address], [address], [facility] [place] 7 18:59:09 External hemorrhoids 82225918 Active 2016 Ritika Vallejo MD [address] [place] [address],[address], [address], [facility] 7 19:04:32 Problem Notes None recorded. Procedures Surgical History Date Name Laterality Status Provider Name and Address Organization Details Recorded Time 06/09/20 17 IRC completed Ritika Vallejo MD [address] [place] [address],[address], [place], [address], [facility] 06/09/2017 19:03:18 06/14/19 11 Colonoscopy completed Minnie [facility] 06/09/2017 11:16:59 06/14/19 07 Hemorrhoidectomy completed Minnie [facility] 06/09/2017 11:17:20 Imaging Results None recorded. Procedure Notes None recorded. Medical Equipment None Reported. Allergies No known drug allergies Medications Name Sig Start Date Stop Date Status Note LastModified by Organization Details LastModified Time aspirin 81 mg tablet,delay ed release Take 1 tablet every day by oral route. active Not Available Not Available No t Available citalopram active Not Available Not Av ailable Not Available Nexium active Not Available Not Availa ble Not Available Vitals Date Recorded Body height Heart rate Respiratory rate Body temperature Body mass index (BMI) Body weight Systolic And Diastolic Provider Name and Address Organization Details Last Updated DateTime 7 195.58 cm 85 /min 16 /min 98.4 [degF] 38 kg/m2 207549. 71 g 170/117 mm[Hg] Minnie SOTELO [facility] [place] 7 11:23:38 Social History Question Answer Notes LastModified by Organizat ion Details LastModified Time Tobacco Smoking Status Current Every Day Smoker Minnie crow, [place] - [facility] 06/09/2017 11:15:55 How Much Tobacco Do You Chew? None Information not available 06/09/2017 Alcohol Use Yes [email or web address] Information not available 06/04/2017 Alcohol Amount Moderate [email or web address] Informat ion not available 06/09/2017 Caffeine Use Yes [email or web address] Informatio n not available 06/09/2017 Caffeine Type Coffee [email or web address] Informati on not available 06/09/2017 Caffeine Amount 2+c/day [email or web address] Information not available 06/09/2017 Illicit Drug Use No [email or web address] Information not available 06/09/2017 Type Of Tobacco Cigars [email or web address] Information not available 06/09/2017 What Was The Date Of Your Most Recent Tobacco Screening? 06/09/2017 Information not available 01/05/2019 How Many Years Have You Smoked Tobacco? 11 [email or web address] Information not available 06/09/2017 Sex: Unknown Functional Status None recorded. Mental Status None recorded. Family History Relationship Description Onset Age of this Age Resolved Age Notes LastModified by Organization Details LastModified Time Father Coronary arterioscler osis [email or web address] Not available 14:46:27 Mother Leukemia [email or web address] Not avail able 06/09/2017 11:15:43 Medical History Condition Response Anemia Y Anxiety Disorder Y Reflux/GERD Y Irritable Bowel Syndrome Y Past Encounters Encounter ID Performer Location Encounter Start Date Encounter Closed Date Diagnosis/Indication Diagnosis SNOMED-CT Code Diagnosis ICD10 Code Diagnosis IMO Codes Diagnosis Note [id number] Ritika Vallejo MD Main Office [address] [facility] [address] [place] [address] 06/09/2017 10:58:31 06/09/2017 11:41:27 Pile easily reducible 087627138 K64.1 He has always done well with IRC and I thought he would benefit today. I reviewed informed consent and he wanted to proceed. I treated both his LL and RP. I advised him to go off of his baby aspirin for the next 3 weeks. External hemorrhoids 239 39087 K64.4 He also has the granulatio n tissue (possible fistula) on the left side that I think is causing some of his symptoms. I encouraged him to see a colon and rectal surgeon to have this addressed (I gave him Dr. Andrade and Margie's names/info ). Health Concerns Section Related Observation LastModified by Organization Detai ls LastModified Time None Recorded Concern Status LastModified by Organization Details LastModified Time None Recorded Advance Directives Directive None Recorded Payers Insurance Date Sequence Insurance Name Policy Number Policy Escalante Covered Member ID Escalante Member ID Guarantor Name 06/09/2017 1 [facility] [id number] Eduardo Abhishek Michele [id number] Eduardo Michele 11/18/2017 PAYMENT PLAN Eduardo Michele Notes Date Note Type Note Provider Name and Address Organization Details Recorded Time 06/09/2017 text/html See previous visits. He had no problem with treatment and feels it helped a lot. He does always have a small amount of discharge/draina ge but feels it is from the area on the left side of his anal opening. He has had only minimal discomfort. He had some bleeding with BM's over the last few weeks so he decided to come in for another treatment. He has had long standing multiple BM's daily - he states every time I eat I have a BM. Ritika Vallejo MD [address] [facility], [place], [address], [facility] [place] [facility] 06/09/2017 19:29:34
[2025-03-29 19:36] LABS: Hematocrit 45.9 % (42.0-52.0); Hemoglobin 15.2 g/dL (14.0-18.0); Immature Granulocyte Percent A 0.7 % (0-0.5); Lymphocytes Absolute Auto 1.54 K/mm3 (0.9-3.2); Mean Corpuscular HGB Conc 33.1 g/dl (32-36); Mean Corpuscular Hemoglobin 28.7 pg (26-34); Mean Corpuscular Volume 86.8 fl (80-100); Nucleated Red Blood Cells Absolute Auto 0.000 K/mm3 (0.0-0.012); Nucleated Red Blood Cells Perc 0.0 % (0.0-0.2); Platelet Count Result 237 k/mm3 (150-375); Red Blood Count 5.29 M/mm3 (4.6-6.20); White Blood Count 5.5 K/mm3 (4.5-10.0)
[2025-03-29 19:45] LABS: Alanine Aminotransferase 25 U/L (6-50); Albumin Level 4.5 g/dL (3.5-5.1); Alkaline Phosphatase 44 U/L (38-126); Anion Gap 12 mmol/L (4-12); Aspartate Amino Transferase 34 U/L (17-59); Bilirubin,Total 0.6 mg/dL (0.2-1.3); Blood Urea Nitrogen 19 mg/dL (9-20); Calcium 9.3 mg/dL (8.4-10.2); Carbon Dioxide 26 mmol/L (22-30); Chloride 101 mmol/L (98-107); Estimated Glomerular Filt Rate > 60; Glucose 97 mg/dL (65-110); HDL Direct 32 mg/dL; Magnesium 2.0 mg/dL (1.6-2.3); Potassium 4.1 mmol/L (3.4-5.0); Sodium 139 mmol/L (137-145); Total Protein 8.3 g/dL (6.3-8.2)
[2025-03-29 20:01] LABS: Cholesterol 155 mg/dL (0-200); Triglycerides 101 mg/dL (<150)
[2025-03-29 20:04] LABS: Iron 51 ug/dL (49-181)
[2025-03-29 20:22] LABS: Prostate Specific Antigen 0.8 ng/mL (< OR = 4.0)
[2025-03-29 20:23] LABS: Percent Iron Saturation 12 % (20-50)
[2025-03-29 20:42] LABS: Vitamin B12 630.0 pg/mL (239-931)
[2025-03-29 21:04] LABS: Thyroid Stimulating Hormone Reflex 0.732 uIU/mL (0.465-4.68)
[2025-03-29 21:08] LABS: Ferritin 14.80 ng/mL (11.1-264)
[2025-04-02 10:08] LABS: Free Testosterone (Direct) 8.8 pg/mL (7.2-24.0)
== END 2025-03-29 10:46 | disposition home or self-care (01) ==
LOC: ANHGOSHLAB 10:45
PROVIDERS: PCP Family Medicine; Visit Provider Nurse Practitioner Family
DX: E78.2 Mixed hyperlipidemia (principal); I10 Essential (primary) hypertension; R73.03 Prediabetes; E53.8 Deficiency of other specified B group vitamins; E55.9 Vitamin D deficiency, unspecified; E61.1 Iron deficiency; Z12.5 Encounter for screening for malignant neoplasm of prostate
CPT/HCPCS: 36415; 80053; 80061; 82306; 82607; 82728; 83540; 83550; 83735; 84153; 84402; 84403; 84443; 85025; G0103